=== PATIENT | male | born 2000 | race Caucasian/White ===

== ENCOUNTER 2024-08-29 12:51 | Emergency (ER) | payer OTHER ==
[~2024-08-29] VITALS: Ht 162.6 cm; Wt 68.0 kg
[2024-08-29 13:03] VITALS: TEMP 36.9; O2SAT 96
[2024-08-29] MEDS: IBUPROFEN 800MG TABLET PO ONE (15:34)
[2024-08-29] MEDS: TETANUS, DIPHTHERIA, PERTUSSIS VAC/PF 0.5ML (>10YR OLD) IM ONE (15:35)
[2024-08-29] MEDS: LIDOCAINE HCL/EPINEPHRINE 1%-EPI 1:100,000 20ML VIAL INFIL ONE (17:00)
[2024-08-29] MEDS: BACITRACIN ZINC OINT UDPKT TOP ONE (17:00)
[2024-08-29] MEDS ORDERED: BO1 TP (17:55)
[2024-08-29] MEDS ORDERED: IBUP-2030 MT (17:56)
[2024-08-29 18:09] VITALS: BP 133/70; PULSE 90; RESP 16; O2SAT 100
== END 2024-08-29 18:10 | disposition home or self-care (01) ==
LOC: ER 12:51
DX: S51.812A Laceration without foreign body of left forearm, initial encounter (principal); J45.909 Unspecified asthma, uncomplicated; X58.XXXA Exposure to other specified factors, initial encounter; Y93.89 Activity, other specified; Y92.89 Other specified places as the place of occurrence of the external cause; Y99.8 Other external cause status
CPT/HCPCS: 73120; 90715; 12002; 90471; 99283; J2004; Z7610